=== PATIENT | male | born 1965 | race Caucasian/White ===

== ENCOUNTER 2017-10-03 05:00 | Emergency (ER) | payer SELFPAY ==
[~2017-10-03] VITALS: Ht 177.8 cm; Wt 81.6 kg
[2017-10-03 05:00] VITALS: BP 150/93
--- NOTE | 2017-10-03 05:00 | NUR ---
Patient BIB [facility] for pre-booking medical screening exam, transferred to bed 4. RN evaluating patient at bedside.
[2017-10-03 05:01] VITALS: BP 150/93
--- NOTE | 2017-10-03 05:01 | NUR ---
BIB [facility] FOR A PREBOOKING T/C. ALLERGIES TO PENICILLIN. MEDICAL HX ASTHMA. SMALL ABRASION ON THE RIGHT KNEE. MINOR. [facility] AT BEDSIDE.
--- NOTE | 2017-10-03 05:48 | NUR ---
PATIENT BIB [facility] POLICE DEPT. PATIENT EXAMINED BY DR. PRINGLE. PATIENT MEDICALLY CLEARED AND RELEASED IN CUSTODY IN STABLE CONDITION. ORIGINAL PRE-BOOK FORM GIVEN TO [facility] OFFICER .
== END 2017-10-03 05:48 ==
LOC: MED 05:00
DX: S80.911A Unspecified superficial injury of right knee, initial encounter (principal); X58.XXXA Exposure to other specified factors, initial encounter; Y93.89 Activity, other specified; Y92.89 Other specified places as the place of occurrence of the external cause; Y99.8 Other external cause status
CPT/HCPCS: 99283